=== PATIENT | male | born 1955 | race Caucasian/White ===

== ENCOUNTER 2020-12-17 13:21 | Emergency (ER) | payer OTHER, SELFPAY ==
[2020-12-17 13:21] VITALS: BP 163/97; PULSE 82; RESP 18; TEMP 36.6; O2SAT 97; BMI 24.0
--- NOTE | 2020-12-17 13:50 | HMH.EDEYEP ---
ED Disposition Clinical Impression: Blurry vision, bilateral Disposition: Home, Self-Care Condition on Discharge: Good Instructions: DI for Visual Field Disturbances Referrals: Provider,Referral, [Primary Care Provider] - [facility] [Other] - Critical Care Critical Care Time: No Attestation: On , the high probability of a clinically significant, sudden or life threatening deterioration of the following system(s) required my full and direct attention, intervention and personal management. The time I documented below is in addition to time spent performing reported procedures but includes the following listed in this critical care notation. Medical Decision Making - Medical Records Medical records reviewed: Yes: I reviewed the patient's medical records. - Ramos Inquiry Pt receiving controlled substance: No Vital Signs: 12/17/20 13:21 12/17/20 14:09 Temperature 97.9 F Temperature Source Oral Pulse Rate 84 Pulse Rate [Left Radial] 82 Respiratory Rate 18 Blood Pressure 134/79 Blood Pressure [Right Arm] 163/97 H Blood Pressure Mean 92 Blood Pressure Mean [Right Arm] 119 Blood Pressure Source [Right Arm] Automatic Cuff Blood Pressure Position [Right Arm] Sitting 02 Sat by Pulse Oximetry 97 98 Oxygen Delivery Method Room Air - Lab Data Lab Results 12/17/20 14:00: WBC 11.0 H, RBC 5.39, Hgb 16.8, Hct 48.9, MCV 90.6, MCH 31.2, MCHC 34.4, RDW 12.8, Plt Count 373, MPV 7.2 L, Neut % (Auto) 69.3, Lymph % (Auto) 21.8, Dougherty % (Auto) 6.7, Eos % (Auto) 1.7, Baso % (Auto) 0.4, Neut # (Auto) 7.6, Lymph # (Auto) 2.4, Dougherty # (Auto) 0.7, Eos # (Auto) 0.2, Baso # (Auto) 0.0 12/17/20 14:00: Sodium 139, Potassium 4.3, Chloride 105, Carbon Dioxide 29, Anion Gap 9.3, BUN 14, Creatinine 0.80, Estimated Creat Clear 68, Estimated GFR 98, Est GFR ( Amer) 118, Glucose 103 H, Calcium 9.9, Total Bilirubin 0.7, AST 31, ALT 17, Alkaline Phosphatase 85, Total Protein 8.1, Albumin 4.7, Globulin 3.4 H, Albumin/Globulin Ratio 1.4 Result diagrams: 12/17/20 14:00 12/17/20 14:00 - CT Data CT Scan: Head Time Received: 15:[address] Reviewed: Yes: I have reviewed the patient's CT results, I have viewed the radiologist's interpretation Preliminary Findings: Normal/NAD - Reevaluation(s) Time: 15:33 Reevaluation #1: On reevaluation, patient is feeling fine. Repeat neuro exam does not show any deficits. I do believe the patient will benefit from follow-up with optometry. Patient was given referral. Patient instructed to refrain from operating heavy machinery and driving until cleared by opthalmologist. Given strict return precautions. Verbalized understanding. Medical Decision Narrative: 65-year-old male presented to the emergency department with some subacute blurry vision. The patient is still able to read close-up, however it seems like his farsighted vision has worsened. Visual acuity was performed. Patient has no other neurologic deficit. There are no visual field deficits. I do believe this is likely secondary to cataracts versus other lens issues. Work-up initiated. Eye Problem HPI - General Chief complaint: Eye Problems Stated complaint: blurry vision Time Seen by Provider: 12/17/20 13:30 Mode of Arrival: Ambulatory Limitations: No Limitations Description of Symptoms (Recalled from ER Triage Doc. by RN): pt c/o blurry/foggy vison for 4 months. States that sees the same with his glasses on as with out them. Denies any other symptoms at this time. Has not seen the eye doctor in 4 years or so. - History of Present Illness HPI Narrative: 65-year-old male presented to the emergency department with some blurry vision. Patient has had these issues for the last 6 months or so. Patient feels like his vision is gradually getting worse. He notices it more during the daytime. He states that he has had some blurry vision. At night and in low light, he feels like his eyes are better. He has
[2020-12-17 14:09] VITALS: BP 134/79; PULSE 84; O2SAT 98
[2020-12-17 14:17] LABS: Alanine Aminotransferase 17 U/L (12-78); Albumin Level 4.7 g/dl (3.5-5.0); Albumin/Globulin Ratio 1.4 (1.1-1.8); Alkaline Phosphatase 85 U/L (38-126); Anion Gap 9.3 mEq/L (5-15); Aspartate Amino Transferase 31 U/L (17-59); Bilirubin,Total 0.7 mg/dl (0.2-1.3); Blood Urea Nitrogen 14 mg/dl (9-20); Calcium 9.9 mg/dl (8.4-10.2); Carbon Dioxide 29 mmol/L (22.0-30.0); Chloride 105 mmol/L (98-107); Creatinine Clearance Estimated 68 mL/min (50-200); Estimated Glomerular Filt Rate 98 ml/min (>60); GFR (African American) 118 ML/MIN (>60); Globulin 3.4 g/dL (1.3-3.2); Glucose 103 mg/dl (74-100); Potassium 4.3 mmoL/L (3.5-5.1); Sodium 139 mmol/L (136-145); Total Protein,Serum 8.1 g/dl (6.3-8.2)
--- NOTE | 2020-12-17 14:18 | PC.NURSE ---
right eye pt could see the 20/70, left eye pt could see 20/200 with glasses on.
--- NOTE | 2020-12-17 14:24 | CT_ITS ---
PROCEDURE: CT HEAD/BRAIN WO CON CLINICAL INDICATION: blurry vision COMPARISON: No exams were available for comparison TECHNIQUE: Axial images obtained. All CT scans at the facility use one or more dose reduction, viz: automated exposure control, ma/kV adjustment per patient size (including targeted exams where dose is matched to indication, i.e. head), or iterative reconstruction technique. FINDINGS: Images are degraded due to motion artifact. No midline shift, mass effect, intracranial hemorrhage, hydrocephalus, or extra-axial fluid collection is evident. Atherosclerotic vascular calcification is noted. Few scattered periventricular and subcortical white matter hypodensities are noted. The calvarium has an unremarkable appearance. Mucosal thickening of the maxillary sinuses, partially visualized. Mastoid air cells are clear.. IMPRESSION: Images are degraded due to motion artifact. No acute intracranial process within the limitations of the study. Atherosclerotic vascular disease. Dictated by: Tatyana Faye 12/17/2020 14:52 Tatyana Faye in [facility] 12/17/2020 14:52
--- NOTE | 2020-12-17 14:24 | PC.NURSE ---
Pt taken up for CT
[2020-12-17 14:28] LABS: Basophils % 0.4 % (0.1-2.0); Eosinophils # 0.2 K/mm3 (0.0-0.4); Eosinophils % 1.7 % (0.1-12.0); Hematocrit 48.9 % (42.0-52.0); Hemoglobin 16.8 g/dL (14.1-18.0); Lymphocytes # 2.4 K/mm3 (0.7-4.5); Lymphocytes % 21.8 % (10-50); Mean Corpuscular HGB Conc 34.4 g/dL (31.8-35.4); Mean Corpuscular Hemoglobin 31.2 pg (27.0-31.2); Mean Corpuscular Volume 90.6 fl (80-94); Mean Platelet Volume 7.2 fl (7.4-10.4); Monocytes # 0.7 K/mm3 (0.1-1.0); Monocytes % 6.7 % (1.7-9.3); Neutrophils # 7.6 K/mm3 (1.8-7.8); Neutrophils % 69.3 % (37.0-80.0); Platelet Count 373 K/mm3 (142-424); Red Blood Count 5.39 M/mm3 (4.60-6.20); Red Cell Distribution Width 12.8 % (11.5-17.5)
[2020-12-17 15:52] VITALS: BP 142/73; PULSE 69; RESP 20; TEMP 36.6; O2SAT 98
== END 2020-12-17 15:53 | disposition home or self-care (01) ==
PROVIDERS: Emergency Provider Emergency Medicine
DX: H53.8 Other visual disturbances (principal); R73.9 Hyperglycemia, unspecified
CPT/HCPCS: 70450; 80053; 85025; 99282

== ENCOUNTER 2023-10-06 07:08 | Day surgery (SDC) | payer MEDICARE, SELFPAY ==
[2023-10-06] VITALS (7 sets, daily range): BP systolic 123–166; BP diastolic 63–81; PULSE 74–92; RESP 16–18; TEMP 36.2–36.3; O2SAT 95–98; BMI 24.9
[2023-10-06] MEDS: TETRACAINE 0.5% OPTH SOL 15ML OP ×3 (07:21→07:22)
[2023-10-06] MEDS: PHENYLEPHRINE 2.5% OPHTH SOLN 2ML 0.0500000000000000028 ML OP ×3 (07:21→07:22)
[2023-10-06] MEDS: CYCLOPENTOLATE 2% OPHTH SOLN 2ML BOTTLE OP ×3 (07:21→07:22)
[2023-10-06] MEDS: TOBRAMYCIN/DEX OPTH SUSP 2.5ML OP (09:24)
[2023-10-06] MEDS: SODIUM CHLORIDE 0.9% 10ML FLUSH SYRINGE 10 ML IV (09:24)
[2023-10-06] MEDS: MIDAZOLAM 2MG/2ML VIAL 1 MG IV (09:24)
[2023-10-06] MEDS: LIDOCAINE 1% PF 2ML AMPULE 2 ML IJ (09:24)
[2023-10-06] MEDS: TIMOLOL 0.5% OPTH SOLN 5ML OP (09:25)
== END 2023-10-06 09:50 | disposition home or self-care (01) ==
PROVIDERS: Visit Provider Ophthalmology
PROC: (CPT 66982; principal; 2023-10-06 08:30)
DX: H25.812 Combined forms of age-related cataract, left eye (principal)
CPT/HCPCS: 66982; V2632

== ENCOUNTER 2023-10-20 08:05 | Day surgery (SDC) | payer MEDICARE, SELFPAY ==
[2023-10-16 14:50] VITALS: BMI 30.9
[2023-10-20] VITALS (7 sets, daily range): BP systolic 127–173; BP diastolic 68–75; PULSE 70–82; RESP 16–20; TEMP 36.4; O2SAT 97–100
[2023-10-20] MEDS: TETRACAINE 0.5% OPTH SOL 15ML OP ×3 (09:18→09:23)
[2023-10-20] MEDS: PHENYLEPHRINE 2.5% OPHTH SOLN 2ML 0.0500000000000000028 ML OP ×3 (09:18→09:23)
[2023-10-20] MEDS: CYCLOPENTOLATE 2% OPHTH SOLN 2ML BOTTLE OP ×3 (09:18→09:23)
[2023-10-20] MEDS: SODIUM CHLORIDE 0.9% 10ML FLUSH SYRINGE 10 ML IV (10:55)
[2023-10-20] MEDS: MIDAZOLAM 2MG/2ML VIAL 1 MG IV (10:55)
[2023-10-20] MEDS: LIDOCAINE 1% PF 2ML AMPULE 2 ML IJ (10:58)
[2023-10-20] MEDS: TOBRAMYCIN/DEX OPTH SUSP 2.5ML OP (10:59)
[2023-10-20] MEDS: TIMOLOL 0.5% OPTH SOLN 5ML OP (10:59)
== END 2023-10-20 11:25 | disposition home or self-care (01) ==
PROVIDERS: Visit Provider Ophthalmology
PROC: (CPT 66984; principal; 2023-10-20 10:00)
DX: H25.811 Combined forms of age-related cataract, right eye (principal)
CPT/HCPCS: 66984; V2632